=== PATIENT | male | born 1945 | race African-American/Black ===

== ENCOUNTER 2016-08-31 10:57 | Emergency (ER) | payer MEDICARE, MEDICAID ==
[~2016-08-31] VITALS: Ht 180.3 cm; Wt 60.0 kg
[~2016-08-31 10:57] MED LIST: ACET-2178 PO; ALBU05 IH; CLON2TAB PO
[2016-08-31 11:13] VITALS: BP 113/79
[2016-08-31] MEDS ORDERED: LIDOCAINE HCL 1% 20ML VIAL (Pyxis) INJ MC ONE (12:30)
[2016-08-31] MEDS ORDERED: BACITRACIN ZINC OINT UDPKT TOP ONE (12:30)
== END 2016-08-31 14:51 | disposition home or self-care (01) ==
LOC: ER 14:21
DX: L02.31 Cutaneous abscess of buttock (principal); F20.9 Schizophrenia, unspecified; Z98.890 Other specified postprocedural states; F17.210 Nicotine dependence, cigarettes, uncomplicated
CPT/HCPCS: 10060; 99283; J3490

== ENCOUNTER 2016-09-02 13:31 | Emergency (ER) | payer MEDICARE, MEDICAID ==
[~2016-09-02] VITALS: Ht 177.8 cm; Wt 59.0 kg
[2016-09-02 14:10] VITALS: BP 114/51
== END 2016-09-02 18:17 | disposition left against medical advice (07) ==
LOC: ER 13:32
DX: L02.31 Cutaneous abscess of buttock (principal); Z53.21 Procedure and treatment not carried out due to patient leaving prior to being seen by health care provider

== ENCOUNTER 2017-06-19 11:47 | Emergency (ER) | payer MEDICARE, MEDICAID ==
[~2017-06-19] VITALS: Ht 180.3 cm; Wt 63.0 kg
[2017-06-19 12:07] VITALS: BP 155/94
== END 2017-06-19 13:20 | disposition left against medical advice (07) ==
LOC: ER 11:47
DX: E86.0 Dehydration (principal); J45.909 Unspecified asthma, uncomplicated; F17.200 Nicotine dependence, unspecified, uncomplicated; F20.9 Schizophrenia, unspecified; R56.9 Unspecified convulsions; F14.10 Cocaine abuse, uncomplicated
CPT/HCPCS: 71045; 87086; 93005; 99285

== ENCOUNTER 2018-02-07 17:34 | Emergency (ER) | payer MEDICARE, MEDICAID ==
[~2018-02-07] VITALS: Ht 172.7 cm; Wt 60.0 kg
[2018-02-07 17:37] VITALS: BP 79/42
== END 2018-02-07 18:35 | disposition left against medical advice (07) ==
LOC: ER 17:34
DX: F10.129 Alcohol abuse with intoxication, unspecified (principal); J45.909 Unspecified asthma, uncomplicated; I10 Essential (primary) hypertension; F20.9 Schizophrenia, unspecified; F11.10 Opioid abuse, uncomplicated; Y90.9 Presence of alcohol in blood, level not specified
CPT/HCPCS: 99283

== ENCOUNTER 2018-05-08 17:42 | Emergency (ER) | payer MEDICARE, MEDICAID ==
[~2018-05-08] VITALS: Ht 175.3 cm; Wt 56.0 kg
[2018-05-08 19:26] LABS: BASOPHILS % 0.3 % (0.0-2.0); EOSINOPHILS % 0.5 % (0.0-5.0); HEMATOCRIT. 40.5 % (42.0-52.0); HEMOGLOBIN. 13.6 g/dL (14.0-18.0); LYMPHOCYTES % 10.8 % (20.0-50.0); MEAN CORPUSCULAR HEMOGLOBIN 28.8 pg (28.0-32.0); MEAN CORPUSCULAR VOLUME 85.5 fL (80.0-94.0); MEAN PLATELET VOLUME 8.1 fl (7.4-10.4); NEUTROPHILS % 80.4 % (40.0-76.0); PLATELET 317 x1000/uL (130-400); RED BLOOD CELL COUNT 4.74 mill/uL (4.7-6.1); RED CELL DISTRIBUTION WIDTH 15.5 % (11.6-14.6)
[2018-05-08 19:30] LABS: CHLORIDE 104 mEq/L (98-107)
[2018-05-08] MEDS ORDERED: IOHEXOL-300 100 ML BOTTLE ONE (20:57)
[2018-05-08 21:52] VITALS: BP 112/64
== END 2018-05-08 21:56 | disposition home or self-care (01) ==
LOC: ER 17:42
DX: R07.89 Other chest pain (principal); R50.9 Fever, unspecified; J45.909 Unspecified asthma, uncomplicated; I10 Essential (primary) hypertension; F20.9 Schizophrenia, unspecified; F17.200 Nicotine dependence, unspecified, uncomplicated; F11.10 Opioid abuse, uncomplicated; Z98.890 Other specified postprocedural states
CPT/HCPCS: 36415; 71260; 80053; 85025; 99284; Q9967

== ENCOUNTER 2018-05-28 16:21 | Emergency (ER) | payer MEDICARE, MEDICAID ==
[~2018-05-28] VITALS: Ht 175.3 cm; Wt 59.0 kg
[2018-05-28] MEDS ORDERED: BACITRACIN ZINC OINT UDPKT TOP ONE (20:00)
[2018-05-28] MEDS ORDERED: LIDOCAINE 1%/EPI 1:100,000 10 ML VIAL IJ ONE (20:00)
[2018-05-28 21:05] VITALS: BP 146/79
== END 2018-05-28 21:06 | disposition home or self-care (01) ==
LOC: ER 16:21
DX: L02.413 Cutaneous abscess of right upper limb (principal); J44.9 Chronic obstructive pulmonary disease, unspecified; F20.9 Schizophrenia, unspecified; I11.9 Hypertensive heart disease without heart failure; I51.9 Heart disease, unspecified; Z79.899 Other long term (current) drug therapy
CPT/HCPCS: 10060; 99283; J3490; Z7610

== ENCOUNTER 2018-06-11 13:39 | Emergency (ER) | payer MEDICARE, OTHER ==
[~2018-06-11] VITALS: Ht 175.3 cm; Wt 66.0 kg
[2018-06-11 17:00] LABS: CHLORIDE 105 mEq/L (98-107)
[2018-06-11 17:05] LABS: BASOPHILS % 0.7 % (0.0-2.0); EOSINOPHILS % 0.8 % (0.0-5.0); HEMATOCRIT. 39.8 % (42.0-52.0); HEMOGLOBIN. 13.2 g/dL (14.0-18.0); LYMPHOCYTES % 12.9 % (20.0-50.0); MEAN CORPUSCULAR HEMOGLOBIN 28.4 pg (28.0-32.0); MEAN CORPUSCULAR VOLUME 85.7 fL (80.0-94.0); MEAN PLATELET VOLUME 7.5 fl (7.4-10.4); MONOCYTES % 7.8 % (2.0-8.0); NEUTROPHILS % 77.8 % (40.0-76.0); PLATELET 491 x1000/uL (130-400); RED BLOOD CELL COUNT 4.64 mill/uL (4.7-6.1); RED CELL DISTRIBUTION WIDTH 15.1 % (11.6-14.6)
[2018-06-11 20:40] VITALS: BP 152/83
== END 2018-06-11 20:41 | disposition home or self-care (01) ==
LOC: ER 13:39
DX: R40.4 Transient alteration of awareness (principal); R07.89 Other chest pain; F10.10 Alcohol abuse, uncomplicated; F13.10 Sedative, hypnotic or anxiolytic abuse, uncomplicated; F12.10 Cannabis abuse, uncomplicated; J45.909 Unspecified asthma, uncomplicated; I11.9 Hypertensive heart disease without heart failure; F20.9 Schizophrenia, unspecified; W19.XXXA Unspecified fall, initial encounter; Y93.89 Activity, other specified; Y92.89 Other specified places as the place of occurrence of the external cause; Y99.8 Other external cause status
CPT/HCPCS: 36415; 71045; 83880; 84484; 93005; 99284

== ENCOUNTER 2019-01-23 07:24 | Emergency (ER) | payer MEDICARE, MEDICAID, OTHER ==
[~2019-01-23] VITALS: Ht 172.7 cm; Wt 56.0 kg
[~2019-01-23 07:24] MED LIST changes: -ACET-2178 PO; +TOPUD PO
[2019-01-23 07:29] VITALS: BP 132/67
[2019-01-23] MEDS ORDERED: LIDOCAINE HCL/PF 1% 10 MG/ML 5ML VIAL IJ ONE (08:15)
[2019-01-23] MEDS ORDERED: BACITRACIN ZINC OINT UDPKT TOP ONE (08:15)
[2019-01-23] MEDS ORDERED: BACITRACIN 15GM TUBE TOP ONE (08:45)
== END 2019-01-23 11:00 | disposition home or self-care (01) ==
LOC: ER 07:25
DX: L02.31 Cutaneous abscess of buttock (principal); F12.10 Cannabis abuse, uncomplicated
CPT/HCPCS: 10060; 99283; J3490

== ENCOUNTER 2019-06-17 22:59 | Emergency (ER) | payer MEDICARE, OTHER ==
[~2019-06-17] VITALS: Ht 175.3 cm; Wt 58.9 kg
[2019-06-18] MEDS ORDERED: LIDOCAINE 1%/EPI 1:100,000 10 ML VIAL IJ ONE (05:15)
[2019-06-18] MEDS ORDERED: LIDOCAINE HCL/EPINEPHRINE 1%-EPI 1:100,000 20 ML VIAL INFIL NR (05:15)
[2019-06-18] MEDS ORDERED: BACITRACIN ZINC OINT UDPKT TOP ONE (05:15)
[2019-06-18 06:50] VITALS: BP 112/64
== END 2019-06-18 06:52 | disposition home or self-care (01) ==
LOC: ER 22:59
DX: L02.31 Cutaneous abscess of buttock (principal); I10 Essential (primary) hypertension; F12.90 Cannabis use, unspecified, uncomplicated
CPT/HCPCS: 10060; 99283; J3490

== ENCOUNTER 2019-09-13 08:34 | Emergency (ER) | payer MEDICARE, OTHER ==
[~2019-09-13] VITALS: Ht 175.3 cm; Wt 72.0 kg
[2019-09-13 10:00] VITALS: BP 124/78
== END 2019-09-13 10:01 | disposition home or self-care (01) ==
LOC: ER 08:34
DX: L02.31 Cutaneous abscess of buttock (principal); F31.9 Bipolar disorder, unspecified; I10 Essential (primary) hypertension; F20.9 Schizophrenia, unspecified; F12.10 Cannabis abuse, uncomplicated
CPT/HCPCS: 99282; 99283

== ENCOUNTER 2019-09-22 15:19 | Emergency (ER) | payer MEDICARE, OTHER ==
[~2019-09-22] VITALS: Ht 175.3 cm; Wt 59.0 kg
[2019-09-22] MEDS ORDERED: LIDOCAINE HCL/EPINEPHRINE 1%-EPI 1:100,000 20 ML VIAL INFIL ONE (18:30)
[2019-09-22 20:48] VITALS: BP 96/58
== END 2019-09-22 20:52 | disposition home or self-care (01) ==
LOC: ER 15:19
DX: L02.31 Cutaneous abscess of buttock (principal); I10 Essential (primary) hypertension; F12.90 Cannabis use, unspecified, uncomplicated
CPT/HCPCS: 10060; 99283; J3490

== ENCOUNTER 2019-10-17 09:47 | Emergency (ER) | payer MEDICARE, OTHER ==
[~2019-10-17] VITALS: Ht 185.4 cm; Wt 60.0 kg
[2019-10-17] MEDS ORDERED: PREDNISONE 20MG TABLET PO STA (10:23)
[2019-10-17] MEDS ORDERED: IPRATROPIUM BROMIDE (0.02%) 0.5MG/2.5ML NEB HHN STA (10:23)
[2019-10-17] MEDS ORDERED: ALBUTEROL (0.083%) 2.5MG/3ML NEB HHN STA (10:23)
[2019-10-17 12:45] VITALS: BP 102/60
== END 2019-10-17 14:09 | disposition home or self-care (01) ==
LOC: ER 09:47
DX: L02.31 Cutaneous abscess of buttock (principal); J44.9 Chronic obstructive pulmonary disease, unspecified; J44.1 Chronic obstructive pulmonary disease with (acute) exacerbation; I10 Essential (primary) hypertension; F12.10 Cannabis abuse, uncomplicated; Z79.899 Other long term (current) drug therapy
CPT/HCPCS: 71045; 94640; 99283; J7512

== ENCOUNTER 2019-10-24 09:14 | Inpatient (IN) | payer MEDICARE, OTHER ==
[~2019-10-24] VITALS: Ht 172.7 cm; Wt 56.7 kg
[2019-10-24] MEDS ORDERED: BACITRACIN ZINC OINT UDPKT TOP NR (10:15)
[2019-10-24] MEDS ORDERED: LIDOCAINE HCL/EPINEPHRINE 1%-EPI 1:100,000 20 ML VIAL INFIL NR (10:15)
[2019-10-24] MEDS ORDERED: LIDOCAINE HCL 1% 20ML VIAL (Pyxis) INJ ONE (12:46)
[2019-10-24] MEDS ORDERED: SODIUM BICARBONATE 4% (2.4MEQ) 5ML VIAL IV ONE (12:46)
[2019-10-24 12:54] LABS: BASOPHILS % 0.3 % (0.0-2.0); EOSINOPHILS % 0.9 % (0.0-5.0); HEMATOCRIT. 38.3 % (42.0-52.0); LYMPHOCYTES % 8.5 % (20.0-50.0); MEAN CORPUSCULAR HEMOGLOBIN 28.1 pg (28.0-32.0); MEAN CORPUSCULAR VOLUME 82.8 fL (80.0-94.0); MEAN PLATELET VOLUME 7.2 fl (7.4-10.4); MONOCYTES % 13.6 % (2.0-8.0); NEUTROPHILS % 76.7 % (40.0-76.0); PLATELET 363 x1000/uL (130-400); RED BLOOD CELL COUNT 4.62 mill/uL (4.7-6.1); RED CELL DISTRIBUTION WIDTH 16.7 % (11.6-14.6)
[2019-10-24 13:06] LABS: D-DIMER 1.13 mg/L FEU (<0.50); INR 1.1
[2019-10-24 13:11] LABS: CHLORIDE 105 mEq/L (98-107)
[2019-10-24] MEDS ORDERED: METRONIDAZOLE 500 MG PREMIX 100 ML IV SCH (14:45)
[2019-10-24] MEDS ORDERED: PIPERACILLIN/TAZ 3.375G PREMIX 50 ML IV SCH (14:45)
[2019-10-24] MEDS ORDERED: VANCOMYCIN 1 G PREMIX 200 ML IV SCH (14:45)
[2019-10-24] MEDS ORDERED: MIDAZOLAM HCL 2 MG/2 ML VIAL ONE (16:05)
[2019-10-24] MEDS ORDERED: PROPOFOL 200MG/20ML VIAL IV ONE (16:05)
[2019-10-24] MEDS ORDERED: FENTANYL CITRATE/PF 50MCG/ML 2ML VIAL ONE (16:05)
[2019-10-24] MEDS ORDERED: BUPIVACAINE HCL 0.5% (5MG/ML) 50ML ONE (16:06)
[2019-10-24] MEDS ORDERED: MEPERIDINE HCL/PF 25MG/ML CPJ IV PRN (16:30)
[2019-10-24] MEDS ORDERED: HYDROMORPHONE HCL/PF 2MG/ML CPJ IV PRN (16:30)
[2019-10-24] MEDS ORDERED: ONDANSETRON HCL 4MG/2ML INJ IV PRN ×2 (16:30→18:15)
[2019-10-24] MEDS ORDERED: LABETALOL 5MG/ML SYR 20 MG/4 ML SYRINGE IV PRN (16:30)
[2019-10-24] MEDS ORDERED: CEFAZOLIN SODIUM 1000MG/VIAL ONE (16:53)
[2019-10-24] MEDS ORDERED: EPHEDRINE SULFATE 50MG/ML VIAL ONE (16:53)
[2019-10-24] MEDS ORDERED: DEXAMETHASONE 4MG/ML 1ML VIAL ONE (16:53)
[2019-10-24] MEDS ORDERED: ONDANSETRON HCL 4MG/2ML INJ ONE (16:53)
[2019-10-24] MEDS ORDERED: SODIUM CHLORIDE 0.9% 10ML VIAL ONE (16:53)
[2019-10-24] MEDS ORDERED: MORPHINE SULFATE 4 MG/ML CPJ (NOT FOR IM USE) IV PRN (17:30)
[2019-10-24] MEDS ORDERED: IOHEXOL-300 100 ML BOTTLE ONE (18:08)
[2019-10-24] MEDS ORDERED: GUAIFENESIN 200MG/10ML SUGAR FREE UDC PO PRN (18:15)
[2019-10-24] MEDS ORDERED: DIPHENHYDRAMINE 50MG/ML VIAL IV PRN (18:15)
[2019-10-24] MEDS ORDERED: ACETAMINOPHEN 325MG TABLET PO PRN (18:15)
[2019-10-24] MEDS ORDERED: MAGNESIUM/ALUMINUM HYDROXIDE/SIMETHICONE 30ML UDC PO PRN (18:15)
[2019-10-24] MEDS ORDERED: HYDRALAZINE 20MG/ML VIAL IV PRN (18:15)
[2019-10-24] MEDS ORDERED: DOCUSATE SODIUM 100MG CAPSULE PO PRN (18:15)
[2019-10-24] MEDS ORDERED: IPRATROPIUM/ALBUTEROL 0.5-3(2.5)MG/3ML NEB HHN PRN (18:15)
[2019-10-24] MEDS ORDERED: LORAZEPAM 2MG/ML CPJ IV PRN (18:15)
[2019-10-24] MEDS ORDERED: HYDRALAZINE 10 MG in SODIUM CHLORIDE 0.9% 49.5 ML IV PRN (19:00)
[2019-10-24 20:00] VITALS: BP_SYST 132; BP_SYST 153; BP_DIAS 110; BP_DIAS 77
[2019-10-24] MEDS: ENOXAPARIN 40MG/0.4ML SYR SUBCUT SCH (22:29)
[2019-10-24] MEDS: SODIUM CHLORIDE 0.9% INJ 3ML FLUSH IVF SCH (22:30)
[2019-10-24] MEDS: PIPERACILLIN/TAZOBACTAM 3.375 G in DEXT 5% WATER 100 ML IV SCH (22:31)
[2019-10-24] MEDS: DEXT 5%/0.2% NACL KCL 20MEQ/L 1,000 ML IV SCH (22:31)
[2019-10-24] MEDS: CLONIDINE 0.1MG TABLET PO PRN (22:34)
[2019-10-25] VITALS (7 sets, daily range): BP systolic 98–129; BP diastolic 61–74
[2019-10-25] MEDS: PIPERACILLIN/TAZOBACTAM 3.375 G in DEXT 5% WATER 100 ML IV SCH ×3 (04:15→18:19)
[2019-10-25] MEDS: SODIUM CHLORIDE 0.9% INJ 3ML FLUSH IVF SCH ×3 (06:04→20:55)
[2019-10-25 15:47] LABS: *AMPHETAMINES SCREEN URINE NEGATIVE (NEGATIVE); *BARBITURATES SCREEN URINE NEGATIVE (NEGATIVE)
[2019-10-25 15:48] LABS: *BENZODIAZEPINES SCREEN URINE PRESUMTIVE POSITIVE (NEGATIVE); *COCAINE SCREEN URINE PRESUMTIVE POSITIVE (NEGATIVE); CANNABINOID URINE SCREEN NEGATIVE (NEGATIVE); METHADONE URINE SCREEN NEGATIVE (NEGATIVE); OPIATES URINE SCREEN PRESUMTIVE POSITIVE (NEGATIVE); PHENCYCLIDINE URINE SCREEN NEGATIVE (NEGATIVE)
[2019-10-25] MEDS: DEXT 5%/0.2% NACL KCL 20MEQ/L 1,000 ML IV SCH (16:00)
[2019-10-25] MEDS: ENOXAPARIN 40MG/0.4ML SYR SUBCUT SCH (20:55)
[2019-10-26] VITALS: BP 150/83
[2019-10-26] MEDS: PIPERACILLIN/TAZOBACTAM 3.375 G in DEXT 5% WATER 100 ML IV SCH ×3 (00:32→13:41)
[2019-10-26 04:00] VITALS: BP 156/87
[2019-10-26] MEDS: SODIUM CHLORIDE 0.9% INJ 3ML FLUSH IVF SCH ×2 (06:34→13:41)
[2019-10-26] MEDS: DEXT 5%/0.2% NACL KCL 20MEQ/L 1,000 ML IV SCH ×2 (06:35→13:41)
[2019-10-26 06:45] LABS: CHLORIDE 106 mEq/L (98-107)
[2019-10-26 07:11] LABS: BASOPHILS % 0.2 % (0.0-2.0); EOSINOPHILS % 0.1 % (0.0-5.0); HEMATOCRIT. 40.1 % (42.0-52.0); HEMOGLOBIN. 13.8 g/dL (14.0-18.0); LYMPHOCYTES % 8.9 % (20.0-50.0); MEAN CORPUSCULAR HEMOGLOBIN 28.1 pg (28.0-32.0); MEAN CORPUSCULAR VOLUME 81.9 fL (80.0-94.0); MEAN PLATELET VOLUME 8.1 fl (7.4-10.4); MONOCYTES % 5.4 % (2.0-8.0); NEUTROPHILS % 85.4 % (40.0-76.0); PLATELET 411 x1000/uL (130-400); RED CELL DISTRIBUTION WIDTH 16.9 % (11.6-14.6)
[2019-10-26 08:00] VITALS: BP 145/80
[2019-10-26] MEDS ORDERED: POTASSIUM CHLORIDE 20MEQ TABLET SR PO NR (11:00)
[2019-10-26] MEDS: CLONIDINE 0.1MG TABLET PO PRN (11:50)
[2019-10-26 12:00] VITALS: BP 170/95
[2019-10-26 16:00] VITALS: BP 162/87
== END 2019-10-26 17:29 | disposition left against medical advice (07) | DRG 383 ==
LOC: ER 09:14 → EDBEDREQSVC 12:05 → EDBEDREQ 12:05 → EDBEDREQTM 12:05 → EDBEDREQ 14:56 → ORIP 16:55 → 6EST 18:45
PROVIDERS: ADMIT Internal Medicine; ATTEND Internal Medicine
PROC: 0Y9 Anatomical Regions, Lower Extremities, Drainage (ICD-10-PCS; principal; 2019-10-24)
PROC: 02HV33Z Insertion of Infusion Device into Superior Vena Cava, Percutaneous Approach (ICD-10-PCS; 2019-10-24)
PROC: B548ZZA Ultrasonography of Superior Vena Cava, Guidance (ICD-10-PCS; 2019-10-24)
PROC: B5181ZA Fluoroscopy of Superior Vena Cava using Low Osmolar Contrast, Guidance (ICD-10-PCS; 2019-10-24)
DX: L02.31 Cutaneous abscess of buttock (principal); E46 Unspecified protein-calorie malnutrition; R65.10 Systemic inflammatory response syndrome (SIRS) of non-infectious origin without acute organ dysfunction; N28.1 Cyst of kidney, acquired; F11.20 Opioid dependence, uncomplicated; F12.10 Cannabis abuse, uncomplicated; Z68.1 Body mass index [BMI] 19.9 or less, adult; Z79.899 Other long term (current) drug therapy
CPT/HCPCS: 36415; 36573; 71045; 72193; 76937; 80048; 80053; 80305; 84484; 85025; 85379; 86850; 86900; 87070; 87075; 87077; 87186; 93005; 99285; C1725; J0690; J1100; J1650; J2060; J2250; J2405; J2543; J2704; J3010; J3490; J7060; Q9967

== ENCOUNTER 2019-11-24 13:32 | Emergency (ER) | payer MEDICARE, OTHER ==
[~2019-11-24] VITALS: Ht 175.3 cm; Wt 56.0 kg
[2019-11-24 13:36] VITALS: BP 128/96
== END 2019-11-24 16:10 | disposition home or self-care (01) ==
LOC: ER 13:32
DX: Z48.00 Encounter for change or removal of nonsurgical wound dressing (principal); L98.418 Non-pressure chronic ulcer of buttock with other specified severity
CPT/HCPCS: 99281

== ENCOUNTER 2020-04-04 11:11 | Emergency (ER) | payer MEDICARE, OTHER ==
[~2020-04-04] VITALS: Ht 175.3 cm; Wt 65.0 kg
[2020-04-04 11:19] VITALS: BP 123/76
[2020-04-04] MEDS ORDERED: LIDOCAINE HCL/PF 1% 10 MG/ML 5ML VIAL IJ ONE (11:45)
[2020-04-04] MEDS ORDERED: BACITRACIN ZINC OINT UDPKT TOP ONE (11:45)
== END 2020-04-04 14:15 | disposition home or self-care (01) ==
LOC: ER 11:11
DX: L02.413 Cutaneous abscess of right upper limb (principal); F12.10 Cannabis abuse, uncomplicated; F11.10 Opioid abuse, uncomplicated
CPT/HCPCS: 10060; 87070; 87077; 87205; 99283; A4217; J3490; Z7610

== ENCOUNTER 2020-05-29 18:58 | Emergency (ER) | payer MEDICARE, OTHER ==
[~2020-05-29] VITALS: Ht 182.9 cm; Wt 81.0 kg
[2020-05-29 20:40] VITALS: BP 133/86
== END 2020-05-29 21:18 | disposition home or self-care (01) ==
LOC: ER 18:58
DX: R05 Cough (principal); R09.3 Abnormal sputum; F11.10 Opioid abuse, uncomplicated; F12.10 Cannabis abuse, uncomplicated; J44.1 Chronic obstructive pulmonary disease with (acute) exacerbation
CPT/HCPCS: 99283

== ENCOUNTER 2020-06-05 09:55 | Emergency (ER) | payer MEDICARE, OTHER ==
[~2020-06-05] VITALS: Ht 170.2 cm; Wt 71.0 kg
[2020-06-05 10:00] VITALS: BP 142/78
== END 2020-06-05 10:37 | disposition left against medical advice (07) ==
LOC: ER 09:55
DX: Z53.21 Procedure and treatment not carried out due to patient leaving prior to being seen by health care provider (principal)